=== PATIENT | female | born 1945 | race Caucasian/White ===

== ENCOUNTER → 2025-02-17 | Outpatient (REF) | payer MEDICARE | LOC: CARD 08:52 | PROVIDERS: ATTEND Internal Medicine Infectious Disease | DX: L97.828 Non-pressure chronic ulcer of other part of left lower leg with other specified severity (principal); R60.0 Localized edema | CPT/HCPCS: 93922; 93925; 93970 ==

== ENCOUNTER → 2025-02-18 14:00 | Outpatient (RCR) | payer MEDICARE | END | disposition home or self-care (01) | LOC: WCC 02-11 08:00 | PROVIDERS: ATTEND Internal Medicine Infectious Disease | DX: L97.828 Non-pressure chronic ulcer of other part of left lower leg with other specified severity (principal); R60.0 Localized edema ==

== ENCOUNTER 2025-03-18 14:17 | Outpatient (RCR) | payer MEDICARE | END 2025-03-21 | LOC: WCC 14:17 | PROVIDERS: ATTEND Internal Medicine Infectious Disease | DX: L97.828 Non-pressure chronic ulcer of other part of left lower leg with other specified severity (principal); R60.0 Localized edema ==

== ENCOUNTER 2025-04-08 15:30 | Outpatient (RCR) | payer MEDICARE | END 2025-04-20 | LOC: WCC 15:30 | PROVIDERS: ATTEND Nurse Practitioner Family | DX: L97.828 Non-pressure chronic ulcer of other part of left lower leg with other specified severity (principal); R60.0 Localized edema | CPT/HCPCS: 36415; 82948 ==